=== PATIENT | female | born 1955 | race Hispanic/Latino ===

== ENCOUNTER 2016-08-17 09:53 | Day surgery (SDC) | payer OTHER ==
[2016-08-17 10:41] VITALS: BMI 22.1
[2016-08-17] MEDS ORDERED: Propofol 10 mg/ml Inj (20 ML) ONE ×2 (11:22→11:34)
--- NOTE | 2016-08-17 11:24 | CP.SDSHP ---
Same Day Surgery H & P - History Proposed Procedure: Colonoscopy Pre-Op Diagnosis: polyp surveillance - Previous Medical/Surgical History Misc: Other (Breast cancer) - Allergies Allergies: Allergies No Known Allergies Allergy (Verified 08/17/16 10:41) - Current Medications Current Medications: Mastectomy - Physical Exam General Appearance: wdwn nad Vital Signs: Vital Signs 08/17/16 08/17/16 10:49 11:20 Temperature 98.6 F 98.6 F Pulse Rate 77 77 Respiratory 18 18 Rate Blood Pressure 104/63 104/63 O2 Sat by Pulse 100 100 Oximetry Mental Status: Alert & Oriented x3 Heart: WNL Lungs: WNL GI: WNL - {Optional Preform as Required} Abdomen: WNL - Impression Impression: Histroy of colon polyps Pt. Evaluated Today:Candidate for Anesthesia & Procedure: Yes - Date & Time Date: 08/17/16 Time: 11:24 Short Stay Discharge - Short Stay Discharge Admitting Diagnosis/Reason for Visit: POLYP OF COLON Disposition: HOME/ ROUTINE
[2016-08-17] MEDS ORDERED: Lactated Ringer's 500 ML IV SCH (12:00)
[2016-08-17 12:15] VITALS: O2SAT 99
[2016-08-17 12:36] VITALS: RESP 16
[2016-08-17 13:04] VITALS: BP 123/61; PULSE 64; TEMP 97.1
== END 2016-08-17 13:00 | disposition home or self-care (01) ==
LOC: C.ENDO 09:53
PROVIDERS: ATTEND Internal Medicine Gastroenterology
DX: K57.90 Diverticulosis of intestine, part unspecified, without perforation or abscess without bleeding (principal); K64.8 Other hemorrhoids; A63.0 Anogenital (venereal) warts
CPT/HCPCS: 45380; 88305; J2704; J7120

== ENCOUNTER 2018-06-06 10:48 | Outpatient (CLI) | payer OTHER | END 2018-06-06 10:49 | disposition home or self-care (01) | LOC: C.CTH 10:49 ==